=== PATIENT | female | born 1995 | race Caucasian/White ===

== ENCOUNTER 2017-08-23 08:52 | Emergency (ER) | payer MEDICAID, OTHER ==
[2017-08-23 08:52] VITALS: BMI 21.9
[2017-08-23 08:59] VITALS: BP 108/74; TEMP 98.6
[2017-08-23] MEDS ORDERED: Fluorescein 1 mg Ophthalmic Strip ONE (09:24)
[2017-08-23] MEDS ORDERED: Tetracaine 0.5% Ophth (OR ONLY) ONE (09:24)
--- NOTE | 2017-08-23 09:42 | C.PDOC ---
History Of Present Illness 21-YEAR-OLD MALE, PRESENTS TO THE EMERGENCY DEPARTMENT WITH COMPLAINTS OF FOREIGN BODY SENSATION TO R EYE X 4 DAYS. PS SLEPT IN CONTACT LENS 2 WEEKS AGO BUT HASNT USED CONTACTS SINCE. PS EYE HAS BEEN FINE UNTIL 4 DAYS. +PURULENT DC. PS NEVER FOUND CONTACT LENS. NO VISION LOSS, SWELLING, OTHER ASSOC SX EXAM MILD DIST NONTOXIC HEENT EOMI; PERRLA +MILD CONJ REDNESS R EYE. NO GROSS VISUALIZED FB; EYELID WNL NO ERYTHEMA, SWELL REMAINDE RNEG Chief Complaint (Nursing): Eye Problem Past Medical History Reviewed: Historical Data, Nursing Documentation, Vital Signs Vital Signs: Last Vital Signs Temp 98.6 F 08/23/17 08:56 Pulse 72 08/23/17 09:57 Resp 18 08/23/17 09:57 BP 108/74 08/23/17 08:56 Pulse Ox 99 08/23/17 09:57 - Medical History PMH: Anemia, Bipolar Disorder Denies: Depression Family History: States: No Known Family Hx - Social History Hx Tobacco Use: No Hx Alcohol Use: Yes Hx Substance Use: No - Immunization History Hx Tetanus Toxoid Vaccination: (unk) Hx Influenza Vaccination: No Hx Pneumococcal Vaccination: No Review Of Systems Except As Marked, All Systems Reviewed And Found Negative. Constitutional: Negative for: Fever Cardiovascular: Negative for: Chest Pain Respiratory: Negative for: Shortness of Breath Gastrointestinal: Negative for: Vomiting Musculoskeletal: Negative for: Back Pain Neurological: Negative for: Weakness, Numbness Physical Exam - Physical Exam Appears: Non-toxic, No Acute Distress Skin: Warm, Dry, No Rash Head: Atraumatic, Normacephalic Eye(s): bilateral: Normal Inspection, PERRL, right: Other (EOMI; PERRLA +MILD CONJ REDNESS R EYE. NO GROSS VISUALIZED FB; EYELID WNL NO ) Nose: Normal Oral Mucosa: Moist Lips: Normal Appearing Neck: Normal ROM Cardiovascular: Rhythm Regular, No Murmur Respiratory: No Accessory Muscle Use Extremity: Normal ROM Neurological/Psych: Oriented x3, Normal Speech ED Course And Treatment O2 Sat by Pulse Oximetry: 100 Reevaluation Time: 09:45 Reassessment Condition: Improved (PT OFFERED CT FOR EVAL POSSIBLE FB BUT REFUSED ) Disposition Counseled Patient/Family Regarding: Diagnosis, Need For Followup, Rx Given - Disposition Referrals: Harpreet Clifford MD [Staff Provider] - Disposition: HOME/ ROUTINE Disposition Time: 09:38 Condition: IMPROVED Prescriptions: Ciprofloxacin 0.3% [Ciloxan 0.3% Ophth SOLN] 2 drop OD Q2 #1 bottle Ibuprofen [Motrin] 600 mg PO Q6 #30 tab Instructions: Conjunctivitis (ED) Forms: [employer] (Yi) - Clinical Impression Clinical Impression: Pain in eye, Conjunctivitis - Scribe Statement The provider has reviewed the documentation as recorded by the Scribe (Shant Duckworth) All medical record entries made by the Scribe were at my direction and personally dictated by me. I have reviewed the chart and agree that the record accurately reflects my personal performance of the history, physical exam, medical decision making, and the department course for this patient. I have also personally directed, reviewed, and agree with the discharge instructions and disposition. Procedures - Eye Procedure Alcaine Drops Administered: Yes Eye Irrigated w/ Saline (ccs): 100 Progress: TETRACAINE 1-2 DROPS R EYE. FLUORESCEIN APPLIED, EXAMINED W CABA LAMP. NO FB VISUALIZED, EYELIDS EVERTED. NO GROSS CORNEAL ABRASION OR LESIONS. EYE IRRIGATED W SALINE. PT TOLERATED WELL
[2017-08-23 09:57] VITALS: PULSE 72; RESP 18
[2017-08-23 13:34] VITALS: O2SAT 100
== END 2017-08-23 09:58 | disposition home or self-care (01) ==
LOC: C.ER 08:52
DX: H10.9 Unspecified conjunctivitis (principal); H57.11 Ocular pain, right eye

== ENCOUNTER 2018-08-03 18:53 | Emergency (ER) | payer MEDICAID ==
[2018-08-03 18:53] VITALS: BMI 21.9
[2018-08-03 19:02] VITALS: BP 105/69; PULSE 77; RESP 20; TEMP 99.5; O2SAT 98
--- NOTE | 2018-08-03 19:27 | C.PDOC ---
History Of Present Illness 22 year old female presents to the ER with a compliant of right ear itching for the psat few days. Patient states she used a q tip to scratch her ear which caused her to now have ear fullness. Denies drainage, pain, headache, dizziness, or bleeding. Time Seen by Provider: 08/03/18 19:13 Chief Complaint (Nursing): ENT Problem History Per: Patient History/Exam Limitations: None Onset/Duration Of Symptoms: Days Current Symptoms Are (Timing): Still Present Quality (Ear): Other (Itchiness, fullness) Symptoms Have Been: Continuous Past Medical History Reviewed: Historical Data, Nursing Documentation, Vital Signs Vital Signs: Last Vital Signs Temp 99.5 F 08/03/18 18:59 Pulse 77 08/03/18 18:59 Resp 20 08/03/18 18:59 BP 105/69 08/03/18 18:59 Pulse Ox 98 08/03/18 18:59 - Medical History PMH: Anemia, Bipolar Disorder Denies: Colonic Polyps, Depression, Hypothyroidism, Sexually Transmitted Disease Family History: States: Unknown Family Hx - Social History Hx Tobacco Use: No Hx Alcohol Use: Yes Hx Substance Use: No - Immunization History Hx Tetanus Toxoid Vaccination: No (unk) Hx Influenza Vaccination: No Hx Pneumococcal Vaccination: No Review Of Systems Constitutional: Negative for: Fever, Chills ENT: Positive for: Other (Right ear itching and fullness). Negative for: Ear Pain, Ear Discharge, Throat Pain Respiratory: Negative for: Cough Physical Exam - Physical Exam Appears: Non-toxic Skin: Normal Color, Warm, Dry Head: Atraumatic, Normacephalic Eye(s): bilateral: Normal Inspection, PERRL, EOMI Ear(s): Bilateral: Normal Nose: Normal Oral Mucosa: Moist Throat: Normal, No Erythema, No Exudate Neck: Normal, Supple Neurological/Psych: Oriented x3, Normal Speech ED Course And Treatment O2 Sat by Pulse Oximetry: 98 (room air) Pulse Ox Interpretation: Normal Progress Note: Patient is resting comfortably in the ER in no acute distress, vitals are stable, will discharge home with instructions to take OTC medication as needed and follow up with ENT for further evaluation. Disposition Counseled Patient/Family Regarding: Diagnosis, Need For Followup - Disposition Referrals: Lenin Day MD [Staff Provider] - Disposition: HOME/ ROUTINE Disposition Time: 19:25 Condition: STABLE Additional Instructions: May take zyrtec for itching TYlenol or advil if pain Return to ER if worse Forms: [facility] (Angolan), General Discharge Instructions - Clinical Impression Clinical Impression: Discomfort of right ear - PA / SENIOR ACCOUNT DIRECTOR / Resident Statement MD/DO has reviewed & agrees with the documentation as recorded. - Scribe Statement The provider has reviewed the documentation as recorded by the Scribe Seun Devries All medical record entries made by the Jigneshibmarcus were at my direction and personally dictated by me. I have reviewed the chart and agree that the record accurately reflects my personal performance of the history, physical exam, medical decision making, and the department course for this patient. I have also personally directed, reviewed, and agree with the discharge instructions and disposition.
== END 2018-08-03 19:34 | disposition home or self-care (01) ==
LOC: C.ER 18:53
DX: H92.01 Otalgia, right ear (principal)

== ENCOUNTER 2019-02-12 12:49 | Emergency (ER) | payer SELFPAY ==
[2019-02-12 13:00] VITALS: BMI 24.7
[2019-02-12 13:03] VITALS: BP 108/70; PULSE 108; RESP 18; TEMP 98.7; O2SAT 99
--- NOTE | 2019-02-12 13:11 | C.PDOC ---
History Of Present Illness 23 y/o female presents to the ER c/o quarter sized erythematous area to the lateral right thigh. Pt reports she had this issue for the past 3-4 years and was told it was only an ingrown hair or black head. Pt was treated by PMD with abx in the past but no true resolution. Pt currently states that she noticed that the area is getting bigger when she felt pain yesterday. Pt also notes she sees clear fluid coming from the site yesterday. Pain is 6/10. Pt denies trauma/injury, fever, chills, nausea and vomiting. Time Seen by Provider: 02/12/19 13:06 Chief Complaint (Nursing): Abnormal Skin Integrity History Per: Patient History/Exam Limitations: no limitations Onset/Duration Of Symptoms: Days (x1) Current Symptoms Are (Timing): Still Present Pain Scale Rating Of: 6 Past Medical History Reviewed: Historical Data, Nursing Documentation, Vital Signs Vital Signs: Last Vital Signs Temp 98.7 F 02/12/19 13:00 Pulse 108 H 02/12/19 13:00 Resp 18 02/12/19 13:00 BP 108/70 02/12/19 13:00 Pulse Ox 99 02/12/19 13:00 - Medical History PMH: Anemia, Anxiety, Bipolar Disorder, Depression Family History: States: Unknown Family Hx - Social History Hx Tobacco Use: No Hx Alcohol Use: Yes Hx Substance Use: No - Immunization History Hx Tetanus Toxoid Vaccination: No Hx Influenza Vaccination: No Hx Pneumococcal Vaccination: No Review Of Systems Constitutional: Negative for: Fever, Chills Gastrointestinal: Negative for: Nausea, Vomiting Musculoskeletal: Positive for: Leg Pain Skin: Positive for: Other (quater-sized erythematous area at the lateral right thigh ). Negative for: Rash Neurological: Negative for: Weakness Physical Exam - Physical Exam Appears: Non-toxic, No Acute Distress Skin: Warm, Dry Cardiovascular: Rhythm Regular Respiratory: Normal Breath Sounds, No Accessory Muscle Use Gastrointestinal/Abdominal: Soft, No Tenderness Extremity: Normal ROM (x4), No Pedal Edema, No Calf Tenderness, Capillary Refill (<2 sec), No Deformity, Other (quarter-sized indurated, erythematous to the right lateral thigh. no active drainage. ) Extremity: Bilateral: Atraumatic Pulses: Right Femoral: Normal Neurological/Psych: Oriented x3, Normal Speech, Normal Cognition, Normal Motor, Normal Sensation ED Course And Treatment O2 Sat by Pulse Oximetry: 99 (RA) Pulse Ox Interpretation: Normal Medical Decision Making Medical Decision Making: Plans: -- keflex Patient verbalizes understanding and is in agreement with plan. Patient is stable for discharge Disposition Counseled Patient/Family Regarding: Diagnosis, Need For Followup, Rx Given - Disposition Referrals: Agusto Henderson DO [Doctor Osteopathy] - Escobar Garcia MD [Staff Provider] - Hope Mauro PA [Physician Research Professor] - Martha Reese APN [Advanced Practice Nurse] - Ernst Bernard MD [Staff Provider] - Jordi Meza MD [Staff Provider] - Disposition: HOME/ ROUTINE Disposition Time: 13:24 Condition: STABLE Additional Instructions: Continue Keflex four times a day for 7 days Follow up with Derm for further assessment in 1-2 days Return to the ED if symptoms worsen Prescriptions: Cephalexin [cephalexin] 500 mg PO Q6 #27 cap Instructions: Cellulitis (Skin Infection), Adult (DC) Forms: [employer] (Turkmen) - Clinical Impression Clinical Impression: Cellulitis - PA / CIGAR WRAPPER / Resident Statement / has reviewed & agrees with the documentation as recorded. - Scribe Statement The provider has reviewed the documentation as recorded by the Scribe All medical record entries made by the Scribe were at my direction and pers onally dictated by me. I have reviewed the chart and agree that the record accurately reflects my personal performance of the history, physical exam, medical decision making, and the department course for this patient. I have also personally directed, reviewed, and agree with the discharge instructions and disposition.
== END 2019-02-12 13:31 | disposition home or self-care (01) ==
LOC: C.ER 12:49
DX: L03.115 Cellulitis of right lower limb (principal)